=== PATIENT | female | born 1960 | race Caucasian/White ===

== ENCOUNTER 2021-06-24 20:20 | Emergency (ER) | payer OTHER ==
[~2021-06-24] VITALS: Ht 162.6 cm; Wt 60.8 kg
[2021-06-24 20:30] VITALS: BP_SYST 167
--- NOTE | 2021-06-24 20:31 | NUR ---
Placed in room 05 . Placed on cardiac rehab nurse, blood pressure machine and pulse oximeter. To gown for exam. Side rails up. Report given to MURIEL Arzate
--- NOTE | 2021-06-24 20:54 | NUR ---
PATIENT AAOX4 AND AMBULATORY FROM HOME C/O INCREASED DIZZINESS AND ONGOING HEADACHES EVER SINCE CHANGING BP MEDICATION. WAS ON LISINOPRIL AND THEN CHANGED TO DIAZIDE. PER PATIENT SHE HAS "VERY DRY MOUTH" AND FEELS LIKE HEART IS RACING. CURRENTLY DENIES ANY PAIN. VSS. DENIES CP OR SOB.
--- NOTE | 2021-06-24 21:39 | NUR ---
Dr. Myles at bedside for MSE.
[2021-06-24] MEDS ORDERED: NACL 0.9% 1,000 ML IV ONE (22:00)
[2021-06-24] MEDS ORDERED: METOCLOPRAMIDE HCL 10 MG/2 ML VIAL IVP ONE (22:00)
[2021-06-24] MEDS ORDERED: MECLIZINE HCL 25 MG TABLET (ANITVERT) PO ONE (22:00)
--- NOTE | 2021-06-24 22:29 | NUR ---
MEDICATION ADMINISTERED ORDERED.
--- NOTE | 2021-06-24 22:29 | NUR ---
# 20 gauge angiocath placed to RIGHT AC . Use of asceptic technique. Opsite placed over site. Blood return noted. Blood for lab drawn from site. Flushed with 10 cc of normal saline. No evidence of infiltration noted. Patient tolerated well.
[2021-06-24 22:30] LABS: BASOPHILS # (AUTO) 0.1 K/uL (0.0-0.2); BASOPHILS % (AUTO) 0.7 % (0.0-2.0); EOSINOPHILS # (AUTO) 0.1 K/uL (0.0-0.4); EOSINOPHILS % (AUTO) 0.9 % (0.0-4.0); HEMATOCRIT 39.2 % (36-48); HEMOGLOBIN 13.4 g/dL (12.0-16.0); LYMPHOCYTES # (AUTO) 1.7 K/uL (1.0-5.5); LYMPHOCYTES % (AUTO) 15.8 % (20.5-51.5); MEAN CORPUSCULAR HEMOGLOBIN 28 pg (27-31); MEAN CORPUSCULAR HGB CONC 34 % (32-36); MEAN CORPUSCULAR VOLUME 83 fL (79.0-98.0); MONOCYTES # (AUTO) 0.5 K/uL (0.0-1.0); MONOCYTES % (AUTO) 4.4 % (1.7-9.3); NEUTROPHILS # (AUTO) 8.3 K/uL (1.8-7.7); NEUTROPHILS % (AUTO) 78.2 % (40.0-70.0); PLATELET COUNT (AUTO) 306 K/uL (130-430); RED BLOOD CELL COUNT(AUTO) 4.73 MIL/uL (4.2-6.2); WHITE BLOOD COUNT (AUTO) 10.6 K/uL (4.8-10.8)
[2021-06-24 22:39] LABS: CALCIUM 9.1 mg/dL (8.4-11.0); CREATININE 0.89 mg/dL (0.55-1.30); POTASSIUM 3.7 mmol/L (3.5-5.1)
[2021-06-24 22:45] LABS: ALBUMIN 4.4 g/dL (3.4-4.8); TOTAL BILIRUBIN 0.7 mg/dL (0.0-1.0)
[2021-06-24 23:20] VITALS: BP_SYST 146
--- NOTE | 2021-06-24 23:20 | NUR ---
Patient given written and verbal discharge instructions and verbalizes understanding. DR. SABRINA ROB MD discussed with patient the results and treatment provided. Patient in stable condition. ID arm band removed. IV catheter removed intact and dressing applied, no active bleeding. Patient educated on pain management and to follow up with PMD. Pain Scale 0/10 Opportunity for questions provided and answered. Medication side effect fact sheet provided.
== END 2021-06-24 23:20 | disposition home or self-care (01) ==
LOC: SED 20:20
DX: E86.0 Dehydration (principal); I10 Essential (primary) hypertension; H81.399 Other peripheral vertigo, unspecified ear
CPT/HCPCS: 36415; 80053; 85025; 96361; 96374; 99283; J2765; J7030; J8597